=== PATIENT | female | born 1980 | race Caucasian/White ===

== ENCOUNTER 2017-12-16 09:09 | Outpatient (CLI) | payer OTHER ==
[~2017-12-16 09:09] MED LIST: MIRALAX510 GM PO; PRENATAL TABLE1 EAC1 PO; RECTICARE30 GM TP; ULTRACET PO
[2017-12-16] MEDS ORDERED: NORFLEX100MG PO (10:56)
[2017-12-16] MEDS ORDERED: KETO10TA2 PO (10:56)
== END 2017-12-16 09:13 | disposition home or self-care (01) ==
LOC: RAD 09:09
DX: M54.5 Low back pain (principal)

== ENCOUNTER 2017-12-16 09:46 | Emergency (ER) | payer OTHER ==
[~2017-12-16] VITALS: Ht 165.1 cm; Wt 78.0 kg
[2017-12-16] MEDS ORDERED: NORFLEX100MG PO (10:56)
[2017-12-16] MEDS ORDERED: KETO10TA2 PO (10:56)
== END 2017-12-16 11:12 | disposition home or self-care (01) ==
LOC: ER 09:46
DX: M54.5 Low back pain (principal)

== ENCOUNTER 2021-10-08 08:31 | Outpatient (CLI) | payer OTHER ==
[~2021-10-08 08:31] MED LIST changes: +KETO10TA2 PO; +NORFLEX100MG PO
== END 2021-10-08 08:52 | disposition home or self-care (01) ==
LOC: RAD 08:31
PROVIDERS: ATTEND General Practice
DX: Z12.31 Encounter for screening mammogram for malignant neoplasm of breast (principal); R05.9 Cough, unspecified; N60.01 Solitary cyst of right breast

== ENCOUNTER 2022-04-29 07:52 | Outpatient (CLI) | payer OTHER | END 2022-04-29 07:55 | disposition home or self-care (01) | LOC: MRI 07:52 | PROVIDERS: ATTEND Obstetrics & Gynecology Gynecologic Oncology | DX: C53.9 Malignant neoplasm of cervix uteri, unspecified (principal) | CPT/HCPCS: 72197 ==

== ENCOUNTER 2022-05-01 07:47 | Outpatient (CLI) | payer OTHER | END 2022-05-01 07:50 | disposition home or self-care (01) | LOC: NUCLEAR 07:47 | PROVIDERS: ATTEND Obstetrics & Gynecology Gynecologic Oncology | DX: C53.0 Malignant neoplasm of endocervix (principal) | CPT/HCPCS: 78816; A9552 ==

== ENCOUNTER 2022-05-28 08:35 | Outpatient (CLI) | payer OTHER | END 2022-05-28 08:50 | disposition home or self-care (01) | LOC: RAD 08:35 | PROVIDERS: ATTEND Obstetrics & Gynecology Gynecologic Oncology | DX: D64.9 Anemia, unspecified (principal); N39.0 Urinary tract infection, site not specified; Z01.818 Encounter for other preprocedural examination; R79.89 Other specified abnormal findings of blood chemistry; Z20.822 Contact with and (suspected) exposure to COVID-19; C54.1 Malignant neoplasm of endometrium ==

== ENCOUNTER 2022-11-11 10:16 | Outpatient (CLI) | payer OTHER | END 2022-11-11 10:28 | disposition home or self-care (01) | LOC: RAD 10:16 | PROVIDERS: ATTEND General Practice | DX: R10.9 Unspecified abdominal pain (principal); R30.0 Dysuria; R11.0 Nausea; M54.50 Low back pain, unspecified ==

== ENCOUNTER 2022-11-17 10:58 | Outpatient (CLI) | payer OTHER | END 2022-11-17 11:08 | disposition home or self-care (01) | LOC: LAB 10:58 | PROVIDERS: ATTEND Radiology Diagnostic Radiology | DX: R10.2 Pelvic and perineal pain (principal) ==

== ENCOUNTER 2022-11-18 09:41 | Outpatient (CLI) | payer OTHER | END 2022-11-18 10:05 | disposition home or self-care (01) | LOC: MRI 09:41 | PROVIDERS: ATTEND Specialist | DX: R10.2 Pelvic and perineal pain (principal); C53.0 Malignant neoplasm of endocervix | CPT/HCPCS: 72196 ==

== ENCOUNTER 2024-04-28 10:47 | Outpatient (CLI) | payer OTHER | END 2024-04-28 11:16 | disposition home or self-care (01) | LOC: MAMO-SONO 10:47 | PROVIDERS: ATTEND Obstetrics & Gynecology Gynecologic Oncology | DX: Z12.31 Encounter for screening mammogram for malignant neoplasm of breast (principal); N64.52 Nipple discharge; N64.89 Other specified disorders of breast; N83.291 Other ovarian cyst, right side ==